=== PATIENT | male | born 1960 | race Asian ===

== ENCOUNTER 2017-12-31 19:41 | Emergency (ER) | payer OTHER, MEDICAID, SELFPAY ==
[2017-12-31] VITALS (9 sets, daily range): BP systolic 89–114; BP diastolic 63–72; PULSE 64–85; RESP 21–24; TEMP 36.8; O2SAT 95–96; BMI 38.2
--- NOTE | 2017-12-31 20:01 | DI.RAD.S_ITS ---
PROCEDURE: XR CHEST 1V INDICATIONS: Chest Pain TECHNIQUE: One view of the chest was acquired. COMPARISON: None. FINDINGS: Surgical changes and devices: None. Lungs and pleura: No pleural effusions or pneumothorax. Lungs are clear. Mediastinum: Mediastinal contours appear normal. Heart size is normal. Bones and chest wall: No suspicious bony lesions. Overlying soft tissues appear unremarkable. IMPRESSION: No acute disease. Dictated by: Asaf Flowers M.D. on 12/31/2017 at 21:21 Approved by: Asaf Flowers M.D. on 12/31/2017 at 21:21
[2017-12-31 20:07] LABS: Add Manual Diff / Slide Review NO; Basophils Percent Auto 0.5 % (0-2); Eosinophils Percent Auto 1.6 % (2-4); Hematocrit 53.6 % (41-53); Hemoglobin 17.9 g/dL (13.5-17.5); Lymphocytes Percent Auto 26.6 % (25-40); Mean Corpuscular HGB Conc 33.4 % (30-36); Monocytes Percent Auto 7.2 % (3-14); Neutrophils Absolute Auto 5200 /uL (3000-5900); Neutrophils Percent Auto 64.1 % (50-75); Platelet Count 216 X10^3/uL (150-400); Red Blood Cell Count 5.96 X10^6/uL (4.5-5.9); Red Cell Distribution Width 15.8 % (11.6-14.8); White Blood Cell Count 8.1 X10^3/uL (4.5-11.0)
--- NOTE | 2017-12-31 20:08 | ED_ITS ---
HPI - Chest Pain General Chief Complaint: Chest Pain Stated Complaint: CHEST PAIN Time Seen by Provider: 12/31/17 19:46 Source: patient and family Mode of arrival: ambulatory Limitations: no limitations History of Present Illness HPI narrative: 57-year-old male with history of stroke and coronary artery disease as well as diabetes presents to the emergency department with 3 hr of left-sided chest pressure that started while at rest. He states at most he has a pressure like discomfort that radiates from the left to right chest and is made worse with exertion and improves with rest. He has a history of coronary artery disease and has been stented twice but states his last heart catheterization was many years ago. He was at [facility] last week for a stroke, which was his 3rd. He admits to diaphoresis nausea and shortness of breath. De denies any worsening with food or palpitation. He denies GB disease or history of alcohol abuse. He has had pancreatitis in the past, but states it felt much different. He denies recent long distance travel or history of clot, but has had recent hospitalization as noted above. MD complaint: chest pain Onset (ago): hour(s) Duration: intermittent Onset: during rest Pain location: left chest Severity: moderate Severity scale (1-10): 4 Quality: tightness and heaviness Pain radiation: RUE Relieving factors: rest Exacerbating factors: exertion Context: recent immobilization Associated symptoms: nausea and diaphoresis Related Data Allergies Allergy/AdvReac Type Severity Reaction Status Date / Time CARMELA Inhibitors Allergy Verified 12/31/17 19:53 caffeine AdvReac Verified 12/31/17 19:53 Review of Systems Review of Systems All systems reviewed & are unremarkable except as noted in HPI and below Constitutional Denies chills, Denies fever(s), Denies lethargy and Denies weakness Eyes Denies change in vision, Denies eye discharge, Denies irritation and Denies loss of vision ENT Ears, Nose, Mouth, and Throat: Denies change in voice, Denies neck pain and Denies sore throat Cardiovascular Reports chest pain, Denies irregular heart rhythm, Denies lightheadedness, Denies palpitations, Reports dyspnea, Denies dyspnea on exertion and Denies orthopnea Respiratory Denies cough, Reports dyspnea, Denies dyspnea on exertion and Denies wheezing Gastrointestinal Gastrointestinal: Denies abdominal pain, Denies change in bowel habits, Denies diarrhea, Reports nausea and Denies vomiting Genitourinary Denies hematuria, Denies flank pain, Denies urinary incontinence and Denies urinary urgency Musculoskeletal Denies neck pain Integumentary/Breasts Denies pruritus, Denies erythema, Denies rash and Denies wounds Neurologic Denies confusion, Denies loss of vision and Denies weakness Psychiatric Denies anxiety, Denies confusion, Denies depression, Denies homicidal ideation and Denies suicidal ideation Endocrine Denies palpitations Hematologic/Lymphatic Denies easy bruising Allergic/Immunologic Denies wheezing PFSH Medical History A-fib (Acute) Acute CVA (cerebrovascular accident) (Acute) CAD (coronary artery disease) (Acute) Diabetes (Acute) HTN (hypertension) (Acute) Hyperlipidemia (Acute) Social History Smoking Status: Never smoker Exam Narrative Exam Narrative: Pleasant 57-year-old male resting, diaphoresis and obviously slightly uncomfortable. He has a bit of a flat affect which sister states is his baseline since stroke Initial Vital Signs Initial Vital Signs: Vital Signs Temperature 98.3 F 12/31/17 19:49 Pulse Rate 83 12/31/17 19:49 Respiratory Rate 22 12/31/17 19:49 Blood Pressure 114/71 12/31/17 19:49 Pulse Oximetry 95 12/31/17 19:49 Const General: cooperative and acute distress Nutritional Appearance: well nourished and overweight Orientation: alert, awake, oriented x3 and not confused [facility] Head: normocephalic and atraumatic Ears: external ears normal and TM's normal bilaterally Nose: external nose normal and No nasal discharge Face and sinus: sinuses nontender, face symmetric, no sinus tenderness and No dry mucous membranes Mouth: oral mucosae normal and moist mucous membranes Teeth and gingiva: dentition normal Throat: tonsils normal and uvula midline Eyes General: appearance normal, both eyes and all related structures Eyelids: eyelids normal Conjunctivae: conjunctivae normal Sclera: sclerae normal Pupils: PERRL EOM: EOM intact bilaterally Neck Neck: normal visual inspection, trachea midline, No lymphadenopathy, No midline deformity and No JVD Lymphatic: No lymphedema Chest Chest: normal inspection of the chest Resp Effort & Inspection: normal respiratory effort, able to speak in complete sentences, no respiratory distress and no use of accessory muscles Auscultation: clear to auscultation bilaterally, no rales, no rhonchi and no wheezes Cardio Rate: regular rate Rhythm: abnormal rhythm Heart Sounds: no click, no gallops, no murmurs and no rubs Pulses: normal peripheral pulses GI Inspection: non-distended Palpation: soft, no hepatosplenomegaly, No guarding, No pulsatile mass and No tender Auscultation: normal bowel sounds Back/Spine/Pelvis Back: No CVA tenderness Cervical Spine: cervical ROM normal and No pain with cervical ROM Thoracic/Lumbar Spine: thoracic and lumbar spine normal to inspection Skin General: cool/cold Other: Diaphoretic Neuro General: alert, awake and oriented x3 Cranial Nerves: CN's II-XI intact bilaterally Cognition: normal cognition Speech: other (Mild stuttering speech) Gait: normal gait Motor: muscle tone normal throughout Sensory Exam: no sensory deficits noted Extrem General: full ROM, no clubbing, cyanosis or edema, no pedal edema and no calf tenderness Psych Appearance: well kempt Mental Status: mental status grossly normal Attitude: cooperative Thought Content: normal and suicidality Judgment: judgment good Course Orders Ordered: ED Orders 12/31/17 19:50 Complete Blood Count AUTO DIFF Stat Comprehensive Metabolic Panel Stat Lipase Stat Troponin & CK Cardiac Panel Stat 12/31/17 20:00 Partial Thromboplastin Time Stat Prothrombin Time INR Stat 12/31/17 20:01 XR chest 1V Stat EKG-12 Lead Stat 12/31/17 21:31 US abdomen complete Stat 12/31/17 23:03 Lipase Stat Troponin I Stat Sodium Chloride (Normal Saline 0.9%) 1,000 mls @ 999 mls/hr IV CONT CARMEN Last Infusion: 01/01/18 00:42 Dose: 0 mls/hr Infusion: 12/31/17 23:29 Dose: 999 mls/hr Admin: 12/31/17 20:18 Dose: 150 mls/hr Heparin Sodium/Dextrose (Heparin Drip) 25,000 unit in 500 mls @ 24.276 mls/hr IV CONT CARMEN; Protocol Last Admin: 12/31/17 21:36 Dose: 9.88 units/kg/hr, 20 mls/hr Nitroglycerin (Nitrostat) 0.4 mg SL [id number] PRN PRN Reason: Chest Pain Last Admin: 12/31/17 20:24 Dose: 0.4 mg Admin: 12/31/17 20:16 Dose: 0.4 mg Discontinued Medications Aspirin (Aspirin Chew) 324 mg PO NOW ONE Stop: 12/31/17 20:01 Last Admin: 12/31/17 20:19 Dose: 324 mg Heparin Sodium (Porcine) (Heparin) 6,100 unit 60 unit/kg (6100 unit) IV NOW ONE Stop: 12/31/17 21:17 Last Admin: 12/31/17 21:27 Dose: 6,100 unit Ondansetron HCl 8 mg/ Sodium (Chloride) 54 mls @ 216 mls/hr IV NOW ONE Stop: 12/31/17 21:06 Last Admin: 12/31/17 21:10 Dose: Sodium Chloride (Normal Saline 0.9%) 1,000 mls @ 1,000 mls/hr IV BOLUS ONE Stop: 01/01/18 01:50 Last Admin: 01/01/18 00:53 Dose: 1,000 mls/hr Reevaluation(s) Reevaluation #1: Patient pain went from 4/10 down to 0/10 after 2 nitro but patient became hypotensive. About 20 min later the patient's pain returns to 4/ 10. Currently withholding beta blockers given his low blood pressure, nitro given his precipitous drop, and heparin until conversation with Cardiology given his ongoing use of aspirin and Eliquis Time: 20:52 Reevaluation #2: Patient continues to deny pain in his epigastrum, but has occasions of pressure in his L chest. Time: 00:43 Consultations Consultation #1: patient strongly prefers use of [facility] for consult. Page to [facility]. To reiterate, though Lipase is elevated patient has absolutely no pain in his epigastrum. His pain is left chest and not reproduceable. Dr. Chiu is traffic control supervisor cardiology and agrees with transfer, recommends admission to hospitalist Time: 20:53 Consultation #2: Dr. Rick Walsh (hospitalist) has returned call. Happy to accept patient onto service. Lengthy talk about history and physical being very concerning for a cardiac etiology. Discussion of elevated Lipase but very atypical pancreatitis presentation. Vital Signs - 8 hr 12/31/17 19:49 12/31/17 20:16 12/31/17 20:21 Temperature 98.3 F Pulse Rate 83 71 85 Respiratory Rate 22 Blood Pressure 114/71 104/65 98/64 Blood Pressure [Right Arm] Pulse Oximetry 95 12/31/17 20:24 12/31/17 20:28 12/31/17 20:40 Temperature Pulse Rate 85 84 80 Respiratory Rate 24 Blood Pressure 98/64 89/64 L Blood Pressure [Right Arm] 90/63 Pulse Oximetry 96 12/31/17 20:51 12/31/17 21:38 12/31/17 23:40 Temperature Pulse Rate 71 64 65 Respiratory Rate 21 23 Blood Pressure Blood Pressure [Right Arm] 101/72 101/72 96/70 Pulse Oximetry 95 96 95 MDM - Chest Pain Differential Diagnosis Likely unstable angina pectoris and chest pain Medical Records Data Attestation: I reviewed the patient's medical records. Lab Data Attestation: I reviewed the patient's lab results. Result diagrams: 12/31/17 19:50 12/31/17 19:50 Lab Results 12/31/17 12/31/17 12/31/17 Range/Units 19:50 19:50 20:00 WBC 8.1 (4.5-11.0) X10^3/uL RBC 5.96 H (4.5-5.9) X10^6/uL Hgb 17.9 H (13.5-17.5) g/dL Hct 53.6 H (41-53) % MCV 90.0 (80-100) fL MCH 30.0 (26-34) PG MCHC 33.4 (30-36) % RDW 15.8 H (11.6-14.8) % Plt Count 216 (150-400) X10^3/uL Neut % (Auto) 64.1 (50-75) % Lymph % (Auto) 26.6 (25-40) % [place] % (Auto) 7.2 (3-14) % Eos % (Auto) 1.6 L (2-4) % Baso % (Auto) 0.5 (0-2) % Neut # (Auto) 5200 (2513-1428) /uL PT 13.7 H (10.1-12.7) SECONDS INR 1.3 (0.9-1.3) APTT 29 (26.4-36.2) SECONDS Sodium 139 (137-145) mmol/L Potassium 4.8 (3.4-5.1) mmol/L Chloride 103 (98-107) mmol/L Carbon Dioxide 22 (22-32) mmol/L BUN 42 H (9-20) mg/dL Creatinine 1.50 H (0.66-1.25) mg/dL Estimated GFR 47.9 L (>60) mL/min BUN/Creatinine Ratio 28.0 H (6-22) Glucose 115 H (70-100) mg/dL Calcium 9.9 (8.4-10.2) mg/dL Total Bilirubin 1.0 (0.2-1.3) mg/dL AST 33 (17-59) IU/L ALT 35 (21-72) IU/L Alkaline Phosphatase 135 H (38-126) U/L Total Creatine Kinase 130 (55-170) U/L CK-MB (CK-2) 2.03 (<2.37) ng/mL CK-MB (CK-2) Rel Index 1.6 (1.5-5.0) % Troponin I 0.025 (0.01-0.034) ng/mL Total Protein 8.6 H (6.3-8.2) g/dL Albumin 4.4 (3.5-5.0) g/dL Globulin 4.2 H (1.7-4.1) g/dL Albumin/Globulin Ratio 1.0 (1.0-2.8) Lipase 9683 H (23-300) U/L 12/31/17 Range/Units 23:03 WBC (4.5-11.0) X10^3/uL RBC (4.5-5.9) X10^6/uL Hgb (13.5-17.5) g/dL Hct (41-53) % MCV (80-100) fL MCH (26-34) PG MCHC (30-36) % RDW (11.6-14.8) % Plt Count (150-400) X10^3/uL Neut % (Auto) (50-75) % Lymph % (Auto) (25-40) % [place] % (Auto) (3-14) % Eos % (Auto) (2-4) % Baso % (Auto) (0-2) % Neut # (Auto) (7534-2693) /uL PT (10.1-12.7) SECONDS INR (0.9-1.3) APTT (26.4-36.2) SECONDS Sodium (137-145) mmol/L Potassium (3.4-5.1) mmol/L Chloride (98-107) mmol/L Carbon Dioxide (22-32) mmol/L BUN (9-20) mg/dL Creatinine (0.66-1.25) mg/dL Estimated GFR (>60) mL/min BUN/Creatinine Ratio (6-22) Glucose (70-100) mg/dL Calcium (8.4-10.2) mg/dL Total Bilirubin (0.2-1.3) mg/dL AST (17-59) IU/L ALT (21-72) IU/L Alkaline Phosphatase (38-126) U/L Total Creatine Kinase (55-170) U/L CK-MB (CK-2) (<2.37) ng/mL CK-MB (CK-2) Rel Index (1.5-5.0) % Troponin I 0.025 (0.01-0.034) ng/mL Total Protein (6.3-8.2) g/dL Albumin (3.5-5.0) g/dL Globulin (1.7-4.1) g/dL Albumin/Globulin Ratio (1.0-2.8) Lipase 35060 H (23-300) U/L Imaging Data US - abdomen: My impression: GB surgically absent. Slight dilation of CBD, expected in post choley patient. Atypical echotexture of pancreas ECG Data Attestation: I personally reviewed and interpreted this ECG as follows: Prior ECG tracings: not available for review Interpretation: EKG 1: Atrial fibrillation at 60 without other signs of ectopy. No ST segmental elevations or depressions, no T-wave inversions or other suggestions of ischemia. Repeat ordered for 30 min EKG 2: unchanged EKG 3: unchanged MDM Narrative Medical decision making narrative: Patient with longstanding cardiovascular disease and multiple stents presents with chest pressure while at rest that radiates from left to right side of chest and is associated with shortness of breath nausea and diaphoresis. His pain is worse with exertion and improves with rest and nitro. He denies any provocation to food or palpation. He has a history of pancreatitis and states this is very much different than that occurence, which was a reproducible sharp and stabbing epigastric pain, worse with food and palpation. His pain is very concerning for unstable angina and though he has elevated lipase, he has no pain on palpation, no radiation to back , no provocation with food, and otherwise normal labs. We thank Dheeraj Chiu and Renata and the rest of the staff at [facility] for helping in the care of this patient. Critical Care Time Critical Care Time: Yes Total Critical Care Time: 45 Attestation: The high probability of a clinically significant, sudden or life threatening deterioration of the [cardiac] system(s) required my full and direct attention, intervention and personal management. The aggregate critical care time was [45] minutes. This time is in addition to time spent performing reported procedures but includes the following: [x] Data Review and interpretation [x] Patient assessment and monitoring of vital signs [x] Documentation [x] Medication orders and management Discharge Plan Departure Patient Disposition: [facility] Clinical Impression: Angina pectoris, unstable, Acute pancreatitis
[2017-12-31 20:16] LABS: Alanine Aminotransferase 35 IU/L (21-72); Albumin 4.4 g/dL (3.5-5.0); Alkaline Phosphatase 135 U/L (38-126); Aspartate Aminotransferase 33 IU/L (17-59); Blood Urea Nitrogen 42 mg/dL (9-20); Calcium 9.9 mg/dL (8.4-10.2); Carbon Dioxide 22 mmol/L (22-32); Chloride 103 mmol/L (98-107); Creatine Kinase 130 U/L (55-170); Estimated Glomerular Filt Rate 47.9 mL/min (>60); Globulin 4.2 g/dL (1.7-4.1); Glucose 115 mg/dL (70-100); Potassium 4.8 mmol/L (3.4-5.1); Sodium 139 mmol/L (137-145); Total Protein 8.6 g/dL (6.3-8.2)
[2017-12-31] MEDS: NITROGLYCERIN 0.4 MG SL TAB SL ×2 (20:16→20:24)
[2017-12-31] MEDS: SODIUM CHLORIDE 0.9% 1,000 ML 150 ML IV (20:18)
[2017-12-31] MEDS: ASPIRIN 81 MG TAB 324 MG PO (20:19)
[2017-12-31 20:24] LABS: HEMOLYSIS 24 (0-50)
[2017-12-31 20:28] LABS: Troponin I 0.025 ng/mL (0.01-0.034)
[2017-12-31 20:32] LABS: CKMB % Relative Index 1.6 % (1.5-5.0); Creatine Kinase MB 2.03 ng/mL (<2.37)
[2017-12-31 21:11] LABS: Lipase 9683 U/L (23-300)
[2017-12-31] MEDS: HEPARIN 5,000 UNIT/ML VIAL 6100 UNIT IV (21:27)
--- NOTE | 2017-12-31 21:31 | DI.US.S_ITS ---
PROCEDURE: US ABDOMEN COMPLETE INDICATIONS: epigastric pain TECHNIQUE: Real-time scanning was performed of the abdominal and retroperitoneal organs, with image documentation. COMPARISON: None. FINDINGS: Liver: Liver is normal in size and mild diffuse increased echotexture. Gallbladder: Gallbladder is surgical absent. Biliary ducts: Intrahepatic bile ducts are non-dilated. Extrahepatic bile duct caliber measures 8.6 mm. Normal is 6-7 mm or less in diameter, or 10 mm or less post-cholecystectomy. Pancreas: Visualized portions of the pancreas are sonographically normal. Spleen: Spleen is normal in size and homogeneous in echotexture. Kidneys: Kidneys are normal in size and echotexture. Right kidney measures 12.5 cm long; left kidney measures 12.9 cm long. No hydronephrosis or nephrolithiasis. No solid masses. Simple cysts are present in kidneys, one in the right kidney measuring 1.1 cm and one in the left kidney measuring 2.6 cm. Aorta: Visualized aorta is normal in caliber at less than 3 cm. Iliacs: Proximal common iliac arteries are normal in caliber at less than 2.5 cm. IVC: Intrahepatic inferior vena cava is patent. Miscellaneous: No free abdominal fluid. IMPRESSION: 1. Diffusely increased hepatic echotexture. This finding is most likely secondary to hepatic fatty infiltration although other hepatocellular disease may have a similar appearance. Recommend clinical correlation. 2. Cholecystectomy with prominent common bile duct. 3. Simple renal cysts. No significant discrepancy with the night warehouse selector radiology preliminary report. Dictated by: Betina Corbin M.D. on 01/01/2018 at 7:23 Approved by: Betina Corbin M.D. on 01/01/2018 at 7:29
[2017-12-31] MEDS: HEPARIN DRIP 25,000 UNIT/500 ML IV.SOLN 20 UNIT IV (21:36)
[2017-12-31 21:44] LABS: INR 1.3 (0.9-1.3); Prothrombin Time 13.7 SECONDS (10.1-12.7)
[2017-12-31 21:47] LABS: PTT Partial Thromboplastin Tim 29 SECONDS (26.4-36.2)
[2017-12-31 23:50] LABS: Lipase 11024 U/L (23-300); Troponin I 0.025 ng/mL (0.01-0.034)
[2018-01-01] MEDS: SODIUM CHLORIDE 0.9% 1,000 ML 1000 ML IV (00:53)
--- NOTE | 2018-02-22 15:37 | PC.NURSE ---
Per Bre Kumar RN, pt had NS infusion started 01/01/2018 at 0053 and completed at 0159 with 1000ml infused. Pt had Dextrose infusing upon discharge at 0250.
== END 2018-01-01 02:50 | disposition short-term general hospital (02) ==
PROVIDERS: Emergency Provider Emergency Medicine
DX: I20.0 Unstable angina (principal); K85.90 Acute pancreatitis without necrosis or infection, unspecified
CPT/HCPCS: 36415; 36591; 71045; 76700; 80053; 82550; 82553; 83690; 84484; 85025; 85610; 85730; 93005; 96361; 96365; 96366; 96375; 99283; 99285; J1644